=== PATIENT | female | born 1970 | race Caucasian/White ===

== ENCOUNTER 2020-12-06 11:52 | Emergency (ER) | payer OTHER ==
[~2020-12-06] VITALS: Ht 172.7 cm; Wt 86.2 kg
[~2020-12-06 11:52] MED LIST: SERTRALINE; no reportable meds
[2020-12-06 11:59] VITALS: BP 152/108
--- NOTE | 2020-12-06 12:46 | NUR ---
Patient discharged to home in stable condition. Written and verbal after care instructions given. Patient verbalizes understanding of instruction. Pt ambulatory with a steady gait
== END 2020-12-06 12:46 | disposition home or self-care (01) ==
LOC: ER 12:00
DX: Z46.89 Encounter for fitting and adjustment of other specified devices (principal); J45.909 Unspecified asthma, uncomplicated; F32.9 Major depressive disorder, single episode, unspecified; Z90.49 Acquired absence of other specified parts of digestive tract; Z88.0 Allergy status to penicillin; Z60.2 Problems related to living alone